=== PATIENT | female | born 1965 | race Caucasian/White ===

== ENCOUNTER → 2017-06-11 | Day surgery (SDC) | payer OTHER, MEDICARE ==
[~2017-06-11] VITALS: Ht 162.6 cm; Wt 52.2 kg
[~2017-06-11] MED LIST: ATIVAN0.5 MG PO; DIAZEPAM5 MG PO; DICYCLOMINE HCL10 MG PO; DILAUDID2 MG PO; FLEXERIL10 MG PO; IBUPROFEN800 M1 PO; KEPPRA500 M1 PO; LEVSIN/SL0.125 MG SL; MAGNESIUM OXID400 MG PO; MULTIVITAMIN1 TAB PO; NEXIUM 40MG40 MG PO; OXYCODONE HYDRO15 MG PO; PHENERGAN25 M1 PO; TYLENOL WITH C1 EACH PO; VALIUM5 M1 PO; ZOFRAN4 M1 SL
--- NOTE | 2017-06-11 07:50 | Operative Report ---
Operative/Inv Procedure Report Surgery Date: 06/11/17 Name of Procedure: Right lateral malleolus open reduction internal fixation Pre-Operative Diagnosis: Right lateral malleolus fracture Post-Operative Diagnosis: Right lateral malleolus fracture Estimated Blood Loss: scant Surgeon/Retort Pre Cooker: oDnato LECHUGA,Sergei SINGLETON Anesthesia: laryngeal mask airway Complications: None Condition: Stable to PACU Operative Indication: This is a 51-year-old female who injured her ankle after a fall. X-rays showed a displaced lateral malleolus ankle fracture. Risks and benefits of the procedure were discussed with the patient at length. Risks include but are not limited to nerve damage, muscle damage, infection, blood loss, blood clots, pulmonary embolus, and even . The patient agreed to the above risks and elected to proceed with surgery. Operative/Procedure Note Note: The patient was placed supine on the operating room table. A tourniquet was applied. The lower extremity was prepped and draped in the normal sterile fashion. A timeout was performed before the incision. The site marking was visualized before incision. After the leg was prepped and draped, an Esmarch was used to exsanguinate the extremity. The tourniquet was inflated. A longitudinal incision was made overlying the distal fibula fracture site. The soft tissue was dissected. This fracture was identified. The fracture ends were debrided. The wound was copiously irrigated. A reduction clamp was then used to reduce the distal fibular fracture. An interfragmentary screw was then placed. The near cortex was drilled first. The far cortex was then drilled. The screw length was measured. An interfragmentary screw was then applied. An arthrex 4 hole distal fibular locking plate was applied. A cortical screw was applied proximal to the fracture which served to reduce the plate to the bone. A cancellous screw was placed distally as well as two locking screws. Two locking screws were placed in the proximal plate as well. The fracture was well fixed. A stress view was performed which showed stability to the syndesmosis. The wound was copiously irrigated. The skin was closed with 2-0 Vicryl suture and a 3-0 nylon stitch in a horizontal mattress fashion. A dry sterile dressing was applied along with a posterior and U splint. The patient was transferred to PACU in stable condition.
--- NOTE | 2017-06-12 10:48 | RADIOLOGY REPORT ---
EXAMINATION: Intraoperative fluoroscopy CLINICAL INFORMATION: Right ankle ORIF COMPARISON: Ankle radiographs 06/02/2017 TECHNIQUE: Intraoperative fluoroscopy was provided for use by Dr. Sewell. A total of 5 images were saved to PACS. TOTAL FLUOROSCOPIC TIME: 36 seconds FINDINGS\E\IMPRESSION: Intraoperative fluoroscopy provided for use by Dr. Sewell. Please see operative note for detailed findings.
== END ==
LOC: STS 01:59
DX: S82.61XA Displaced fracture of lateral malleolus of right fibula, initial encounter for closed fracture (principal); W19.XXXA Unspecified fall, initial encounter; G35 Multiple sclerosis; G89.4 Chronic pain syndrome; M79.7 Fibromyalgia; F17.200 Nicotine dependence, unspecified, uncomplicated
CPT/HCPCS: 73600-RT; C1713; J0690; J2250